=== PATIENT | male | born 1975 | race Caucasian/White ===

== ENCOUNTER 2019-11-17 22:31 | Emergency (ER) | payer BC, OTHER ==
[2019-11-17] MEDS ORDERED: TRUVADA 200 MG-300 MG TABLET PO ONE (22:32)
[2019-11-17] MEDS ORDERED: ISENTRESS PO ONE (22:32)
--- NOTE | 2019-11-17 23:57 | ERPHSYRPT ---
- History of Present Illness Time Seen by Provider: 11/17/19 23:40 Source: patient Exam Limitations: no limitations Patient Subjective Stated Complaint: pt states he was stuck in the rt thumb with a 20 ga angio after iv stick on his patient. Triage Nursing Assessment: pt alert and oriented, answers questions approp. pt ambulatory with steady gait noted, respirations nonlabored with lungs cta. no visisble puncture wound. pt states under thumb nail. states did bleed after Physician History: Pt works for [employer] and c/o a needle stick to his right thumb by a needle that was just removed from a patient about 85 minutes ago. Pt denies chest pain, shortness of air, abdominal pain, vomiting. Allergies/Adverse Reactions: NSAIDS (Non-Steroidal Anti-Inflamma Allergy (Severe, Verified 11/17/19 23:01) Anaphylactic Reaction Hx Influenza Vaccination/Date Given: No Hx Pneumococcal Vaccination/Date Given: No Immunizations Up to Date: Yes Travel Risk - International Travel Have you traveled outside of the country in past 3 weeks: No - Coronavirus Screening Are you exhibiting any of the following symptoms?: No Close contact with a COVID-19 positive Pt in past 14-21 Days: No - Review of Systems Respiratory: No Dyspnea Cardiac: No Chest Pain Abdominal/Gastrointestinal: No Abdominal Pain, No Nausea, No Vomiting Skin: Other (needle stick to right thumb tonight.) All Other Systems: Reviewed and Negative - Past Medical History Pertinent Past Medical History: Yes Cardiac History: Hypertension Endocrine Medical History: Diabetes Type II - Past Surgical History Past Surgical History: Yes Gastrointestinal: Appendectomy - Social History Smoking Status: Never smoker Exposure to second hand smoke: No Drug Use: none Patient Lives Alone: No - Nursing Vital Signs Nursing Vital Signs: Initial Vital Signs Temperature 98.2 F 11/17/19 22:52 Pulse Rate 105 H 11/17/19 22:52 Respiratory Rate 16 11/17/19 22:52 Blood Pressure 163/107 11/17/19 22:52 O2 Sat by Pulse Oximetry 96 11/17/19 22:52 Pain Scale Pain Intensity 0 - Physical Exam General Appearance: alert Eye Exam: PERRL/EOMI Ears, Nose, Throat Exam: pharynx normal Neck Exam: normal inspection Respiratory Exam: normal breath sounds Cardiovascular Exam: normal heart sounds Gastrointestinal/Abdomen Exam: normal bowel sounds Back Exam: normal range of motion Extremity Exam: other (needlestick to right thumb under nail: no bleeding, tenderness or edema.) Neurologic Exam: alert, cooperative Skin Exam: No cyanosis SpO2 Interpretation: normal SpO2: 96 O2 Delivery: Room Air - Course Nursing assessment & vital signs reviewed: Yes Ordered Tests: Medication Summary Generic Name Dose Route Start Last Admin Trade Name Freq PRN Reason Stop Dose Admin Raltegravir 400 mg 11/18/19 00:15 Isentress PO 12/18/19 00:14 STAT JUAN DANIEL Discontinued Medications Generic Name Dose Route Start Last Admin Trade Name Freq PRN Reason Stop Dose Admin Emtricitabine/Tenofovir 1 tablet 11/18/19 00:06 Truvada 200 Mg-300 Mg Tablet PO 11/18/19 00:07 STAT STA - Progress Progress: unchanged Counseled pt/family regarding: diagnosis - Departure Departure Disposition: Home Clinical Impression: Needlestick injury accident Condition: Stable Critical Care Time: No Referrals: LYNN KINNEY FNP [Primary Care Provider] - Additional Instructions: Follow up with employee health tomorrow. Prescriptions: Raltegravir Potassium [Isentress] 400 mg PO BID #56 tablet Emtricitabine/Tenofovir (Tdf) [Truvada 200 mg-300 mg Tablet] 1 each PO DAILY #30 tablet
[2019-11-18] MEDS ORDERED: TRUVADA 200 MG-300 MG TABLET PO STA (00:06)
[2019-11-18] MEDS ORDERED: ISENTRESS PO SCH (00:15)
[2019-11-18 00:35] LABS: Hematocrit 46.4 % (42-50); Hemoglobin 18.5 gm/dl (12.5-18.0); Mean Cell Volume 89.2 fl (78-100); Mean Corpuscular Hemoglobin 35.6 pg (26-32); Mean Platelet Volume 11.3 fl (7.5-11.0); Platelet Count 306 K/mm3 (150-450); Red Cell Distribution Width 13.9 % (11.5-14.0); White Blood Count 8.1 K/mm3 (4.0-10.5)
[2019-11-18 00:48] VITALS: BP 150/99; PULSE 90; O2SAT 98
[2019-11-18 00:48] LABS: ALBUMIN 4.6 g/dL (3.5-5.0); CHLORIDE 102 mmol/L (98-107)
[2019-11-18 01:01] LABS: ALKALINE PHOSPHATASE 214 U/L (38-126); ANION GAP 17.2 MEQ/L (5-15); BLOOD UREA NITROGEN 25 mg/dL (9-20); Calcium 9.5 mg/dL (8.4-10.2); Carbon Dioxide 21 mmol/L (22-30); Creatinine 1 0.97 mg/dL (0.66-1.25); EST GLOMERULAR FILTRATION RATE > 60.0 ML/MIN; Glucose 206 mg/dL (74-106); Potassium 4.9 mmol/L (3.5-5.1); SGOT/AST 42 U/L (17-59); SGPT/ALT 74 U/L (0-50); SODIUM 136 mmol/L (137-145); Total Protein 8.5 g/dL (6.3-8.2)
[2019-11-18 01:06] LABS: Mean Corpuscular Hgb Concent. 39.9 g/dl (32-36)
[2019-11-18 03:36] LABS: ATYPICAL LYMPHS 11 %; Eosinophil 4 % (0.00-3.0); Lymphocytes 37 % (24-44); Monocyte 7 % (0.0-12.0); Neutrophils 41 % (36.-66.); Platelet Estimate NORMAL (NORMAL); Total Cells Counted 100
[2019-11-19 08:10] LABS: Hepatitis C Antibody by EIA Non Reactive (Non Reactive)
[2019-11-19 08:12] LABS: Hepatitis B Sur Ag Screen Non Reactive (Non Reactive)
== END 2019-11-18 00:48 | disposition home or self-care (01) ==
LOC: ED 22:31
DX: S61.031A Puncture wound without foreign body of right thumb without damage to nail, initial encounter (principal); W46.1XXA Contact with contaminated hypodermic needle, initial encounter; Y93.89 Activity, other specified; Y92.89 Other specified places as the place of occurrence of the external cause; Y99.0 Civilian activity done for income or pay
CPT/HCPCS: 36415; 80053; 85025; 86317; 86701; 86702; 86803; 87340; 87389; 99283; A9270-GY